=== PATIENT | male | born 1965 | race Caucasian/White ===

== ENCOUNTER 2017-09-06 03:18 | Emergency (ER) | payer MEDICAID, OTHER ==
[~2017-09-06] VITALS: Ht 180.3 cm; Wt 75.7 kg
[~2017-09-06 03:18] MED LIST: CYCL-394 PO; IBUP-1573 PO; LEVO100T9 PO
[2017-09-06 03:21] VITALS: BP 120/84
[2017-09-06] MEDS ORDERED: amoxicillin 250mg capsule PO ONE (03:35)
[2017-09-06] MEDS ORDERED: HYDROcodone/acetaminophen 10/325mg tab PO ONE (03:35)
[2017-09-06] MEDS ORDERED: HYDR-3965 PO (03:38)
[2017-09-06] MEDS ORDERED: AMOX500C2 PO (03:38)
== END 2017-09-06 04:07 | disposition home or self-care (01) ==
LOC: ER 03:19
DX: K08.89 Other specified disorders of teeth and supporting structures (principal); I10 Essential (primary) hypertension; Z79.899 Other long term (current) drug therapy
CPT/HCPCS: 99283

== ENCOUNTER 2021-02-25 22:55 | Emergency (ER) | payer MEDICAID ==
[~2021-02-25] VITALS: Ht 180.3 cm; Wt 81.6 kg
[2021-02-25] MEDS ORDERED: ondansetron/PF 4mg/2ml inj IV ONE (23:00)
[2021-02-25 23:15] LABS: BASOPHILS # (AUTO) 0.1 X10'3 (0-0.2); EOSINOPHILS # (AUTO) 0.3 X10'3 (0-0.9); EOSINOPHILS % (AUTO) 3.7 % (0-6); HEMATOCRIT 39.1 % (42.0-52.0); LYMPHOCYTES # (AUTO) 2.4 X10'3 (1.1-4.8); LYMPHOCYTES % (AUTO) 31.5 % (21-51); MEAN CORPUSCULAR HEMOGLOBIN 29.7 PG (27.0-31.0); MEAN CORPUSCULAR HGB CONC 33.1 g/dL (33.0-36.5); MEAN CORPUSCULAR VOLUME 89.8 FL (78-98); MEAN PLATELET VOLUME 7.9 FL (7.4-10.4); MONOCYTES # (AUTO) 0.7 X10'3 (0-0.9); MONOCYTES % (AUTO) 8.8 % (2-12); NEUTROPHILS # (AUTO) 4.2 X10'3 (1.8-7.7); PLATELET COUNT 363 X10'3 (140-440); RED BLOOD COUNT 4.36 X10'6 (4.70-6.10); RED CELL DISTRIBUTION WIDTH 13.8 % (11.5-14.5); WHITE BLOOD COUNT 7.7 X10'3 (4.5-11.0)
[2021-02-25] MEDS ORDERED: TETanus/Pertussis (Acell)/Diphther VAC/PF (Tdap-Adult) 0.5ml syringe IMVAC ONE (23:15)
--- NOTE | 2021-02-25 23:15 | NUR ---
[facility] WAS CALLED SHORTLY AFTER PT'S ARRIVAL TO ER, [employer] OFFICER RESPONDED. PT BACK FROM CT AT [phone]
[2021-02-25] MEDS ORDERED: iohexol 350MG/ML 100ml bottle IV ONE (23:20)
[2021-02-25 23:29] LABS: PARTIAL THROMBOPLASTIN TIME 26 SECONDS (22-32)
[2021-02-25] MEDS ORDERED: normal saline 1000ml 1,000 ML IV ONE (23:30)
[2021-02-25 23:44] VITALS: BP 128/78
[2021-02-25 23:52] LABS: ALANINE AMINOTRANSFERASE 26 U/L (12-78); ALBUMIN 3.2 G/DL (3.4-5.0); ALBUMIN/GLOBULIN RATIO 0.9 (1.1-1.5); ALKALINE PHOSPHATASE 93 IU/L (46-116); ANION GAP 11 (8-16); ASPARTATE AMINO TRANSFERASE 20 U/L (10-37); BILIRUBIN,TOTAL 0.2 MG/DL (0.1-1.0); BLOOD UREA NITROGEN 15 MG/DL (7-18); BUN/CREATININE RATIO 13.6 (5.4-32.0); CALCIUM 7.9 MG/DL (8.5-10.1); CHLORIDE 107 MMOL/L (99-107); CREATINE KINASE 122 U/L (39-308); GLUCOSE 120 MG/DL (70-104); SODIUM 143 MMOL/L (135-145); TOTAL CARBON DIOXIDE 25.3 MMOL/L (24-32); TOTAL PROTEIN 6.7 G/DL (6.4-8.2); TROPONIN I < 0.04 NG/ML (0.0-0.05); eGFR 70 ML/MIN
[2021-02-25 23:56] LABS: POTASSIUM 2.9 MMOL/L (3.5-5.1)
[2021-02-26 00:11] LABS: EOSINOPHILS % (MANUAL) 5.6 % (0-6); LYMPHOCYTES % (MANUAL) 31.2 % (21-51); MONOCYTES % (MANUAL) 7.2 % (2-12); TOTAL CELLS COUNTED 125
[2021-02-26 00:12] LABS: PLATELET ESTIMATE NORMAL
== END 2021-02-25 23:52 | disposition short-term general hospital (02) ==
LOC: ER 22:56 → EEVIPCON 22:56 → ER 23:52
DX: S11.93XA Puncture wound without foreign body of unspecified part of neck, initial encounter (principal); I10 Essential (primary) hypertension; E07.9 Disorder of thyroid, unspecified; Z79.899 Other long term (current) drug therapy; Z20.822 Contact with and (suspected) exposure to COVID-19
CPT/HCPCS: 36415; 70496; 70498; 71045; 80053; 80320; 82550; 82553; 83874; 84484; 85007; 85025; 85610; 85730; 86885; 86900; 86901; 87635; 90715; 93005; 96361; 96374; 99291; C9803; J2405; J7030; Q9967

== ENCOUNTER 2021-04-24 20:34 | Emergency (ER) | payer MEDICAID ==
[~2021-04-24] VITALS: Ht 182.9 cm; Wt 180.0 kg
[2021-04-24] MEDS ORDERED: normal saline 1000ML IV soln IV ONE (21:05)
[2021-04-24] MEDS ORDERED: CLINDAmcin 900mg/NS 50ml IVPB 50 ML IV ONE (21:05)
[2021-04-24] MEDS ORDERED: ondansetron/PF 4mg/2ml inj IV ONE (21:25)
[2021-04-24 21:37] LABS: BASOPHILS # (AUTO) 0.1 X10'3 (0-0.2); BASOPHILS % (AUTO) 0.4 % (0-1); EOSINOPHILS % (AUTO) 0.1 % (0-6); HEMOGLOBIN 14.9 g/dl (14.0-17.9); LYMPHOCYTES # (AUTO) 1.1 X10'3 (1.1-4.8); LYMPHOCYTES % (AUTO) 5.1 % (21-51); MEAN CORPUSCULAR HEMOGLOBIN 29.4 PG (27.0-31.0); MEAN CORPUSCULAR HGB CONC 33.2 g/dL (33.0-36.5); MEAN CORPUSCULAR VOLUME 88.6 FL (78-98); MEAN PLATELET VOLUME 7.6 FL (7.4-10.4); MONOCYTES # (AUTO) 1.7 X10'3 (0-0.9); MONOCYTES % (AUTO) 7.6 % (2-12); NEUTROPHILS # (AUTO) 19.7 X10'3 (1.8-7.7); NEUTROPHILS % (AUTO) 86.8 % (42-75); PLATELET COUNT 406 X10'3 (140-440); RED BLOOD COUNT 5.08 X10'6 (4.70-6.10); RED CELL DISTRIBUTION WIDTH 14.3 % (11.5-14.5); WHITE BLOOD COUNT 22.7 X10'3 (4.5-11.0)
[2021-04-24] MEDS ORDERED: iohexol 300mg/ml 100ml inj. ONE (21:37)
[2021-04-24] MEDS ORDERED: morphine 4 MG/ML inj SYRINge IV ONE (21:40)
[2021-04-24 21:53] LABS: ALANINE AMINOTRANSFERASE 24 U/L (12-78); ALBUMIN 3.2 G/DL (3.4-5.0); ALBUMIN/GLOBULIN RATIO 0.6 (1.1-1.5); ALKALINE PHOSPHATASE 87 IU/L (46-116); ANION GAP 12 (8-16); ASPARTATE AMINO TRANSFERASE 14 U/L (10-37); BILIRUBIN,TOTAL 0.7 MG/DL (0.1-1.0); BLOOD UREA NITROGEN 11 MG/DL (7-18); CALCIUM 8.8 MG/DL (8.5-10.1); CHLORIDE 99 MMOL/L (99-107); GLUCOSE 101 MG/DL (70-104); POTASSIUM 3.9 MMOL/L (3.5-5.1); SODIUM 136 MMOL/L (135-145); TOTAL CARBON DIOXIDE 25.5 MMOL/L (24-32); TOTAL PROTEIN 8.2 G/DL (6.4-8.2); eGFR 70 ML/MIN
[2021-04-24] MEDS ORDERED: LIDOcaine 1% W/epiNEPHrine 1:200,000 10ml vial IJ ONE (22:40)
[2021-04-24] MEDS ORDERED: LIDOcaine Viscous 15ml cup MM ONE (22:40)
[2021-04-24 22:52] LABS: TOTAL CELLS COUNTED 100
[2021-04-24 22:53] LABS: PLATELET ESTIMATE NORMAL
[2021-04-24] MEDS ORDERED: LIDOcaine 1% w/epiNEPHrine 1:200,000 30ml vial IJ ONE (22:55)
[2021-04-24] MEDS ORDERED: dexamethasone sod phosphate 10mg/ml inj IV STA (23:08)
[2021-04-24 23:28] VITALS: BP 121/75
[2021-04-25] MEDS ORDERED: AMOX-422 PO (00:10)
--- NOTE | 2021-04-25 00:22 | NUR ---
Lidocaine orders dc'd per provider.
[2021-04-25] MEDS ORDERED: CLIN-97 PO (01:37)
[2021-04-25] MEDS ORDERED: LIDO20SO16 PO (01:43)
--- NOTE | 2021-04-25 02:33 | NUR ---
Patient left AMA. Patient left with prescriptions for abx and lidocaine.
== END 2021-04-25 02:37 | disposition left against medical advice (07) ==
LOC: ER 20:35
DX: J36 Peritonsillar abscess (principal); R13.10 Dysphagia, unspecified; I10 Essential (primary) hypertension; Z98.890 Other specified postprocedural states; Z79.2 Long term (current) use of antibiotics; Z79.899 Other long term (current) drug therapy
CPT/HCPCS: 36415; 70491; 80053; 83605; 84145; 85007; 85025; 87040; 87880; 96361; 96365; 96375; 99285; J1100; J2270; J2405; J3490; J7030; Q9967

== ENCOUNTER 2022-06-05 02:24 | Emergency (ER) | payer MEDICAID ==
[~2022-06-05] VITALS: Ht 180.3 cm; Wt 84.1 kg
[~2022-06-05 02:24] MED LIST changes: +CLIN-97 PO; +LIDO20SO16 PO
[2022-06-05 02:39] VITALS: BP 159/108
== END 2022-06-05 10:14 | disposition left against medical advice (07) ==
LOC: ER 02:25
DX: M79.644 Pain in right finger(s) (principal); Z53.21 Procedure and treatment not carried out due to patient leaving prior to being seen by health care provider

== ENCOUNTER 2023-10-03 09:36 | Emergency (ER) | payer MEDICAID ==
[~2023-10-03] VITALS: Ht 180.3 cm; Wt 84.9 kg
[2023-10-03 09:38] VITALS: BP 182/112; PULSE 81; O2SAT 94
[2023-10-03] MEDS ORDERED: OLOP5DRO24 EACHEYE (10:45)
[2023-10-03] MEDS ORDERED: METH4TAB81 PO (10:45)
[2023-10-03 10:53] VITALS: RESP 16; TEMP 98.6
== END 2023-10-03 10:54 | disposition home or self-care (01) ==
LOC: ER 09:36
DX: H10.13 Acute atopic conjunctivitis, bilateral (principal); I10 Essential (primary) hypertension; Z79.2 Long term (current) use of antibiotics; Z79.899 Other long term (current) drug therapy; Z79.1 Long term (current) use of non-steroidal anti-inflammatories (NSAID)
CPT/HCPCS: 99283

== ENCOUNTER → 2024-09-22 | Emergency (ER) | payer SELFPAY ==
[~2024-09-22] VITALS: Ht 180.3 cm; Wt 81.8 kg
[~2024-09-22] MED LIST changes: +METH4TAB81 PO; +OLOP5DRO24 EACHEYE
[2024-09-22 02:21] VITALS: BP 163/100; PULSE 83; RESP 16; TEMP 98.8; O2SAT 98
--- NOTE | 2024-09-22 03:29 | Physician Documentation ---
History of Present Illness ~ Chief Complaint: Eye Pain Stated Complaint: LEFT EYE PAIN Time Seen by MD: 03:27 OK to notify your PCP?: Yes Primary Medical Doctor: [facility] Source: patient, RN/, RN notes reviewed, old records Mode of Arrival: POV Exam Limitations: no limitations HPI 59 year old male presents to the emergency department for complaints of eye pain for the past two days. He states that the pain is worse on his left eye compared to his right. Patient states that he has experienced this type of pain before. He describes his pain as itching. Patient denies any runny nose, congestion, or sneezing. Medication Reconciliation Allergies: Coded Allergies: No Known Allergies (Unverified , 07/13/12) Scheduled Clindamycin HCL* (Clindamycin HCL*), 1 CAP PO Q8H Cyclobenzaprine HCl (Cyclobenzaprine HCl), 10 MG PO TID PRN MUSCLE SPASM Levothyroxine Sodium (Levothyroxine Sodium), 100 MCG PO DAILY, (Reported) Lidocaine Hcl (Xylocaine Viscous), 5 ML PO Q2H PRN SORE THROAT Methylprednisolone (Medrol Dosepak), 0 PO UD Olopatadine HCl (Pataday Once Daily Relief), 1 DROP EACHEYE DAILY Scheduled PRN Ibuprofen (Ibuprofen), 600 MG PO TID PRN, (Reported) Past Medical History Past Medical History: Hypertension, Thyroid (unspecified) Past Surgical History: orthopedic surgeries Alcohol Use: None Drug Use: none Lives with: Family Lives In: Home Occupation: employed Review of Systems All Other Systems at this time: Reviewed and Negative ROS As stated above in the HPI, otherwise all systems are reviewed and negative. Physical Exam Vital Signs: RN Vital Signs have been reviewed: Yes, Temperature: 98.8, Source: Oral, Heart Rate: 83, Respiratory Rate: 16, BP: 163/100, Pulse Oximetry: 98, Weight: 81.820 Oxygen Flow Rate: 0 Pulse Oximetry Reflects: adequate oxygenation Physical Exam General: The patient is well developed, well nourished, nontoxic appearing and is in no acute distress. Skin: [place], warm and dry with no rashes. HEENT: Left eye injected with slight discharge. Right eye is clear. Head was normocephalic and atraumatic. Eyes - pupils equal, round, reactive to light and accommodation. Extraocular movements were intact. Conjunctivae were nonicteric. Ears - bilateral tympanic membranes were normal. The mouth and oropharynx were clear with moist mucous membranes. There were no pharyngeal exudates or erythema. Neck: Supple and nontender. There was no jugular venous distention, lymphadenopathy, thyromegaly or masses. Chest: Clear to auscultation bilaterally without wheezes, rales or rhonchi. No accessory muscle use. No dullness to percussion. Heart: Rate regular and rhythmic. S1, S2. No murmurs. Palpation of the chest wall was normal. No rubs or thrills. Abdomen: Soft, nontender and nondistended. Positive bowel sounds. No guarding or rebound. No hepatosplenomegaly or palpable masses. Extremities: No cyanosis, clubbing or edema. The patient moves all e xtremities. Pulses were equal and symmetric. Neurologic: Cranial nerves II-XII were intact. Sensation was intact to light touch throughout. Motor strength was 5/5 in all four extremities. Deep tendon reflexes were intact in both upper and lower extremities. Psychologic: The patient was oriented to person, place and time. The patient demonstrated appropriate judgement and insight. Progress Results/Orders Reviewed/noted all lab results: Yes Results/Orders Completed Orders - DARIUS BERUMEN MD Dexamethasone Tablet (Decadron Tablet) (09/22/24 03:40) Medications Received in ER Medications (Trade) Dose Ordered Sig/Radha Route PRN Reason Start Time Stop Time Status Last Admin Dose Admin (Decadron tablet) 16 mg ONCE ONCE PO 09/22/24 03:40 09/22/24 03:41 DC 09/22/24 04:14 16 MG Vital Signs 09/22/24 02:21 Temp 98.8 Pulse 83 Resp 16 B/P (MAP) 163/100 Pulse Ox 98 O2 Flow Rate 0 Re-Evaluation Re-Evaluation : Re-Evaluation: Improved, Unchanged Progress Patient was seen and examined. Patient was given reassurance. Patient had similar complaints and has frequent yearly visits for conjunctivitis. Sometimes bacterial sometimes allergic conjunctivitis. Patient states he was doing well had some issues in the right eye as used his medications in those symptoms resolve and now it is in his left eye but he was out of the medications. Patient received a steroid bolus but he also received eyedrops that was presc ribed to him before. He was given reassurance and discharged home. There was no change of vision, no other complaints except itching. Patient should follow up with his primary as needed. Medical Decision Making Eye Diff. Dx: Considerations: Include: Conjuctivits-allergic, Conjuctivitis- bacterial, Conjuctivitis-viral, Corneal abrasion, Corneal laceration, Corneal ulceration, Foreign body-conjuctiva, Foreign body-corneal, Foreign body- intraocular, Foreign body-lid, Glaucoma, Iritis, Orbital cellulitis, Periobital cellulitis, Other Departure Time of Disposition: 03:40 Disposition: HOME / SELF CARE / HOMELESS Impression: Primary Impression: Allergic conjunctivitis Qualified Codes: H10.12 - Acute atopic conjunctivitis, left eye Condition: Stable Discharge Instructions: Allergic Conjunctivitis, Adult, [id number] Referrals: NO PRIMARY CARE PROVIDER (PCP) Prescriptions Olopatadine HCl (Pataday Once Daily Relief) 0.7 % Drops 1 DROP EACHEYE DAILY for 30 Days, #1 BOT Prov: DARIUS BERUMEN MD 09/22/24 Education Educated: Patient Educated regarding: diagnosis, treatment, need for follow up Signature Scribe Signature: Scribed for Darius Berumen MD by Hue Bolaños . 09/22/24 03:40 Attestation: The note accurately reflects work and decisions made by me.Darius Berumen MD 09/22/24 03:29 DARIUS BERUMEN MD Sep 22, 2024 03:29 HUE BAEZA Sep 22, 2024 03:40
[2024-09-22] MEDS: dexamethasone 4mg tablet PO ONE (04:14)
== END | disposition home or self-care (01) ==
LOC: ER 02:18
DX: H10.12 Acute atopic conjunctivitis, left eye (principal); I10 Essential (primary) hypertension
CPT/HCPCS: 99283